=== PATIENT | male | born 1980 | race African-American/Black ===

== ENCOUNTER 2018-04-24 08:01 | Emergency (ER) | payer MEDICAID ==
[~2018-04-24] VITALS: Ht 182.9 cm; Wt 97.0 kg
[2018-04-24] MEDS ORDERED: ONDANSETRON 4MG ODT PO ONE (10:15)
[2018-04-24 13:34] VITALS: BP 137/84
== END 2018-04-24 13:34 | disposition home or self-care (01) ==
LOC: ER 08:15
DX: J06.9 Acute upper respiratory infection, unspecified (principal)
CPT/HCPCS: 71045; 87804; 99284; Q0162

== ENCOUNTER 2018-05-02 03:07 | Emergency (ER) | payer MEDICAID ==
[~2018-05-02] VITALS: Ht 205.7 cm; Wt 111.0 kg
[2018-05-02] MEDS ORDERED: KETOROLAC 30MG/ML VIAL IV STA (06:56)
[2018-05-02] MEDS ORDERED: METOCLOPRAMIDE HCL 10MG/2ML VIAL IV STA (06:56)
[2018-05-02] MEDS ORDERED: SODIUM CHLORIDE 0.9% 1,000 ML IV ONE (06:56)
[2018-05-02] MEDS ORDERED: FAMOTIDINE 20MG/2ML VIAL IV ONE (07:00)
[2018-05-02 08:42] LABS: HEMATOCRIT. 35.7 % (42.0-52.0); HEMOGLOBIN. 11.4 g/dL (14.0-18.0); MEAN CORPUSCULAR HEMOGLOBIN 29.7 pg (28.0-32.0); MEAN CORPUSCULAR VOLUME 92.8 fL (80.0-94.0); MEAN PLATELET VOLUME 8.3 fl (7.4-10.4); PLATELET 150 x1000/uL (130-400); RED BLOOD CELL COUNT 3.85 mill/uL (4.7-6.1)
[2018-05-02 08:44] LABS: CHLORIDE 110 mEq/L (98-107)
[2018-05-02 09:37] LABS: PLATELET ESTIMATE NORMAL
[2018-05-02 12:39] VITALS: BP 103/64
== END 2018-05-02 12:47 | disposition home or self-care (01) ==
LOC: ER 07:23
DX: R10.13 Epigastric pain (principal); H92.02 Otalgia, left ear; D72.819 Decreased white blood cell count, unspecified
CPT/HCPCS: 36415; 76705; 80053; 83690; 85025; 96374; 96375; 99284; J1885; J2765; J3490; J7030; Z7610

== ENCOUNTER 2020-07-25 03:42 | Emergency (ER) | payer SELFPAY ==
[~2020-07-25] VITALS: Ht 188 cm; Wt 73.0 kg
[2020-07-25 04:00] VITALS: BP 134/81
[2020-07-25] MEDS ORDERED: ONDANSETRON 4MG ODT PO ONE (04:00)
== END 2020-07-25 04:13 | disposition home or self-care (01) ==
LOC: ER 04:13
DX: T43.621A Poisoning by amphetamines, accidental (unintentional), initial encounter (principal); R07.89 Other chest pain; F15.988 Other stimulant use, unspecified with other stimulant-induced disorder; R11.0 Nausea; R03.0 Elevated blood-pressure reading, without diagnosis of hypertension; R46.0 Very low level of personal hygiene; Y92.89 Other specified places as the place of occurrence of the external cause
CPT/HCPCS: 93005; 99283; Q0162